=== PATIENT | female | born 1990 | race Caucasian/White ===

== ENCOUNTER → 2018-01-01 08:22 | Outpatient (CLI) | payer OTHER, SELFPAY ==
[2018-01-01 10:10] LABS: Absolute Lymphocyte Count 3.42 X10^3/ul (0.83-4.51); Absolute Neutrophil Count 3.5 X10^3/uL (2.0-7.7); Basophil# 0.09 X10^3/uL; Basophil% 1.1 % (0-1); Eosinophil# 0.44 X10^3/uL; Eosinophils% 5.4 % (0-5); Hematocrit 40.1 % (37-47); Hemoglobin 13.4 g/dl (12.0-15.0); Lymphocyte # 3.42 X10^3/ul (4.0); Lymphocyte % 42.3 % (19-41); Mean Corp Hgb Conc 33.4 g/gl (32-36); Mean Corpuscular Hgb 29.6 pg (27.0-32.0); Mean Corpuscular Volume 88.7 fL (81-99); Mean Platelet Vol. 11.6 fl (6.2-12.0); Monocyte% 7.4 % (0-10); Neutrophil # 3.52 X10^3/uL (2.7-7.7); Neutrophil % 43.6 % (47-70); Platelet Count 320 K/mm3 (150-450); RBC Distribution Width SD 41.9 fl (35.1-43.9); Red Blood Count 4.52 M/mm3 (4.2-5.4); White Blood Count 8.1 K/mm3 (4.4-11.0)
[2018-01-01 10:12] LABS: POSITIVE COUNT NO; POSITIVE DIFFERENTIAL NO; POSITIVE MORPHOLOGY NO
[2018-01-01 10:29] LABS: Thyroid Stim Hormone (TSH) 2.49 uIU/mL (0.358-3.74)
[2018-01-01 11:59] LABS: Vitamin D,25 Hydroxy 9.3 ng/mL (29.95-100.01)
== END ==
PROVIDERS: Visit Provider Nurse Practitioner Women's Health
DX: R53.83 Other fatigue (principal)
CPT/HCPCS: 36415; 82306; 84443; 85025